=== PATIENT | female | born 1990 | race Caucasian/White ===

== ENCOUNTER → 2020-07-22 15:12 | Outpatient (BNVA) | payer OTHER, SELFPAY | PROVIDERS: Family Provider Physician Assistant Medical; PCP Physician Assistant Medical; Visit Provider Nurse Practitioner Family | DX: Z20.828 Contact with and (suspected) exposure to other viral communicable diseases (principal) | CPT/HCPCS: 87635 ==

== ENCOUNTER → 2021-02-26 12:13 | Outpatient (BNVA) | payer SELFPAY | PROVIDERS: Family Provider Physician Assistant Medical; PCP Physician Assistant Medical; Visit Provider Nurse Practitioner Family | DX: N39.0 Urinary tract infection, site not specified (principal); R35.0 Frequency of micturition | CPT/HCPCS: 81000 ==

== ENCOUNTER → 2022-03-10 10:37 | Outpatient (BNVA) | payer SELFPAY | PROVIDERS: Family Provider Physician Assistant Medical; Visit Provider Registered Nurse Neonatal Intensive Care | DX: J02.9 Acute pharyngitis, unspecified (principal) | CPT/HCPCS: 87880 ==

== ENCOUNTER → 2022-08-16 10:07 | Outpatient (BNVA) | payer SELFPAY | PROVIDERS: Family Provider Physician Assistant Medical; Visit Provider Registered Nurse Neonatal Intensive Care | DX: J02.0 Streptococcal pharyngitis (principal) | CPT/HCPCS: 87880 ==